=== PATIENT | female | born 1995 | race Caucasian/White ===

== ENCOUNTER 2017-01-08 11:03 | Emergency (ER) | payer OTHER ==
[~2017-01-08] VITALS: Ht 170.2 cm; Wt 73.0 kg
[~2017-01-08 11:03] MED LIST: BACT800T5 PO
[2017-01-08 11:06] VITALS: BP 122/75; PULSE 82; RESP 18; TEMP 98.3; O2SAT 98
[2017-01-08] MEDS ORDERED: SODIUM CHLOR 0.9% 1000 ML INJ 1,000 ML IV SCH (11:24)
[2017-01-08] MEDS ORDERED: ONDANSETRON HCL 4 MG/2 ML VIAL IVP ONE (11:30)
[2017-01-08] MEDS ORDERED: SODIUM CHLORIDE 0.9% FLUSH 10 ML FLUSH IV FLUSH PRN (11:30)
[2017-01-08 12:01] LABS: AUTOMATED NEUTROPHIL # 4.5 TH/MM3 (1.8-7.7); BASOPHIL % 0.2 % (0.0-2.0); BLOOD, URINE MOD (NEG); COMMENT (UR) CULT NOT INDICATED; CULTURE IF INDICATED CULT NOT INDICATED; EOSINOPHIL # 0.1 TH/MM3 (0-0.4); EOSINOPHIL % 1.8 % (0.0-4.0); GLUCOSE,URINE NEG (NEG); HEMATOCRIT 40.8 % (35.0-46.0); HEMO FLAGS DIFF FINAL; KETONE, URINE NEG (NEG); LYMPH % 24.1 % (9.0-44.0); LYMPHOCYTE # 1.6 TH/MM3 (1.0-4.8); MEAN CELL VOLUME 86.6 FL (80.0-100.0); MEAN CORPUSCULAR HEMOGLOBIN 29.1 PG (27.0-34.0); MEAN CORPUSCULAR HGB CONC 33.5 % (32.0-36.0); MONO % 5.5 % (0.0-8.0); MUCUS URINE MANY /lpf (OCC); NEUT % 68.4 % (16.0-70.0); NITRITE,URINE NEG (NEG); PLATELET COUNT 246 TH/MM3 (150-450); RED BLOOD COUNT 4.71 MIL/MM3 (4.00-5.30); RED CELL DISTRIBUTION WIDTH 12.6 % (11.6-17.2); SQUAMOUS EPITHELIAL CELL URINE 4 /hpf (0-5); URINE COLOR YELLOW (YELLW/STRAW); WHITE BLOOD COUNT 6.6 TH/MM3 (4.0-11.0)
--- NOTE | 2017-01-08 12:24 | PD ---
HPI Chief Complaint: Abdominal Pain Time Seen by Provider: 11:14 Travel History International Travel<30 days: No Contact w/Intl Traveler<30days: No Traveled to known affect area: No History of Present Illness HPI Is a 21 year-old woman who presents to the emergency department complaining of intermittent headaches that she would nausea and vomiting. She describes that for the past couple months she's had intermittent headaches, they come on over about 15 minutes or so, are usually bandlike initially worse on one side that progressed to involve multiple episodes of nausea and vomiting the last for about a day. They're usually resolved with sleep. Over the past month or so they've gotten more frequent and she is having now once every 1-2 weeks. She had an episode yesterday, went to an urgent care today who referred her to the emergency department. She has a history of IBS that usually manifest as some constipation and bloating, she doesn't typically have trouble with vomiting. She has no history of headaches or migraines prior to this. History Past Medical History Narrative Medical IBS, with constipation and bloating LMP: 01/07/17 Social History Alcohol Use: Yes (SOC) Tobacco Use: No Allergies-Medications (Allergen,Severity, Reaction): Coded Allergies: No Known Allergies (Unverified , 01/08/17) Reported Meds & Prescriptions Reported Meds & Active Scripts Active Review of Systems Except as stated in HPI: all other systems reviewed are Neg Physical Exam Narrative GENERAL: Well-appearing 21 year-old woman, no acute distress. SKIN: Focused skin assessment warm/dry. HEAD: Atraumatic. Normocephalic. NECK: Trachea midline. No JVD. CARDIOVASCULAR: Regular rate and rhythm. No murmur appreciated. RESPIRATORY: No accessory muscle use. Clear to auscultation. Breath sounds equal bilaterally. GASTROINTESTINAL: Abdomen soft, non-tender, nondistended. Hepatic and splenic margins not palpable. MUSCULOSKELETAL: No obvious deformities. No clubbing. No cyanosis. No edema. NEUROLOGICAL: Awake and alert. No obvious cranial nerve deficits. Motor grossly within normal limits. Normal speech. PSYCHIATRIC: Appropriate mood and affect; insight and judgment normal. Data Data Last Documented VS Vital Signs Date Time Temp Pulse Resp B/P Pulse Ox O2 Delivery O2 Flow Rate FiO2 01/08/17 11:06 98.3 82 18 122/75 98 Room Air Orders Complete Blood Count With Diff (01/08/17 11:24) Comprehensive Metabolic Panel (01/08/17 11:24) Lipase (01/08/17 11:24) Urinalysis - C+S If Indicated (01/08/17 11:24) Iv Access Insert/Monitor (01/08/17 11:24) Ondansetron Inj (Zofran Inj) (01/08/17 11:30) Sodium Chlor 0.9% 1000 Ml Inj (Ns 1000 M (01/08/17 11:24) Sodium Chloride 0.9% Flush (Ns Flush) (01/08/17 11:30) Ed Urine Pregnancytest Poc (01/08/17 11:24) Ct Brain W/O Iv Contrast(Rout) (01/08/17 ) Ketorolac Inj (Toradol Inj) (01/08/17 13:15) Diphenhydramine Inj (Benadryl Inj) (01/08/17 13:15) Prochlorperazine Inj (Compazine Inj) (01/08/17 13:15) Labs Laboratory Tests Test 01/08/17 11:40 White Blood Count 6.6 TH/MM3 Red Blood Count 4.71 MIL/MM3 Hemoglobin 13.7 GM/DL Hematocrit 40.8 % Mean Corpuscular Volume 86.6 FL Mean Corpuscular Hemoglobin 29.1 PG Mean Corpuscular Hemoglobin 33.5 % Concent Red Cell Distribution Width 12.6 % Platelet Count 246 TH/MM3 Mean Platelet Volume 8.6 FL Neutrophils (%) (Auto) 68.4 % Lymphocytes (%) (Auto) 24.1 % Monocytes (%) (Auto) 5.5 % Eosinophils (%) (Auto) 1.8 % Basophils (%) (Auto) 0.2 % Neutrophils # (Auto) 4.5 TH/MM3 Lymphocytes # (Auto) 1.6 TH/MM3 Monocytes # (Auto) 0.4 TH/MM3 Eosinophils # (Auto) 0.1 TH/MM3 Basophils # (Auto) 0.0 TH/MM3 CBC Comment DIFF FINAL Differential Comment Urine Color YELLOW Urine Turbidity HAZY Urine pH 6.0 Urine Specific [place] 1.029 Urine Protein TRACE mg/dL Urine Glucose (UA) NEG mg/dL Urine Ketones NEG mg/dL Urine Occult Blood MOD Urine Nitrite NEG Urine Bilirubin NEG Urine Urobilinogen LESS THAN 2.0 MG/DL Urine Leukocyte Esterase TRACE Urine RBC 4 /hpf Urine WBC 2 /hpf Urine Squamous Epithelial 4 /hpf Cells Urine Mucus MANY /lpf Microscopic Urinalysis Comment CULT NOT INDICATED Sodium Level 136 MEQ/L Potassium Level 3.8 MEQ/L Chloride Level 103 MEQ/L Carbon Dioxide Level 25.5 MEQ/L Anion Gap 8 MEQ/L Blood Urea Nitrogen 13 MG/DL Creatinine 0.77 MG/DL Estimat Glomerular Filtration 94 ML/MIN Rate Random Glucose 91 MG/DL Calcium Level 9.4 MG/DL Total Bilirubin 0.4 MG/DL Aspartate Amino Transf 53 U/L (AST/SGOT) Alanine Aminotransferase 106 U/L (ALT/SGPT) Alkaline Phosphatase 102 U/L Total Protein 7.4 GM/DL Albumin 3.8 GM/DL Lipase 88 U/L [facility] Medical Decision Making Medical Screen Exam Complete: Yes Emergency Medical Condition: Yes Interpretation(s) CT negative Labs unremarkable Differential Diagnosis Migraine, abdominal migraines, mass, pseudotumor, other Narrative Course Medical decision-making 21 year-old woman presents to the emergency department intermittent headaches, associated nausea and vomiting, ongoing for the past several months. She describes it in between episodes she's perfectly normal. This seems consistent with recurrent migraine/abdominal migraines. I don't think she has pseudotumor , or mass. We'll check CT head, recommend outpatient follow-up with neurology. Diagnosis Primary Impression: Headache Additional Impression: Abdominal migraine Patient Instructions: General Instructions Additional Instructions: Take Topamax as prescribed. Takes Zofran as needed for nausea or vomiting. Return to the emergency department for any new or worsening symptoms. Med/Other Pt SpecificInfo: Prescription(s) given Scripts Ondansetron Odt (Zofran Odt)4 Mg Tab4 Mg SL Q8HR PRN (Nausea/Vomiting) #15 TAB May substitute non-ODT form. Prov:Bryson Luis MD 01/08/17 Topiramate (Topamax)25 Mg Tab25 Mg PO BID #120 TAB Take 25 mg at night for one week, then take 25 mg at night twice a day for one week, then take 25 mg in the morning and 50 mg at night for one week, then continue to take 50 mg twice a day. Prov:Bryson Luis MD 01/08/17 Disposition: 01 DISCHARGE HOME Condition: Stable Bryson Luis MD Jan 08, 2017 12:24
[2017-01-08 12:29] LABS: ANION GAP 8 MEQ/L (5-15); AST (GOT) 53 U/L (15-37); BICARBONATE 25.5 MEQ/L (21.0-32.0); BLOOD UREA NITROGEN 13 MG/DL (7-18); CHLORIDE 103 MEQ/L (98-107); GLOMERULAR FILTRATION RATE 94 ML/MIN (>89); POTASSIUM 3.8 MEQ/L (3.5-5.1); SODIUM (NA) 136 MEQ/L (136-145)
[2017-01-08 12:31] LABS: ALT (GPT) 106 U/L (10-53)
[2017-01-08 12:32] LABS: ALKALINE PHOSPHATASE 102 U/L (45-117); TOTAL BILIRUBIN ADULT 0.4 MG/DL (0.2-1.0)
--- NOTE | 2017-01-08 12:49 | RADRPT ---
EXAM DATE/TIME: 01/08/2017 12:40 [facility] COMPARISON: No previous studies available for comparison. INDICATIONS : Cephalgia starting today. RADIATION DOSE: 33.26 CTDIvol (mGy) MEDICAL HISTORY : None SURGICAL HISTORY : None. ENCOUNTER: Initial ACUITY: 1 day PAIN SCALE: 0/10 LOCATION: cranial in the future if there is a medical necessity for iodinated contrast. TECHNIQUE: Multiple contiguous axial images were obtained of the head. Using automated exposure control and adj ustment of the mA and/or kV according to patient size, radiation dose was kept as low as reasonably a chievable to obtain optimal diagnostic quality images. DICOM format image data is available electro nically for review and comparison. FINDINGS: CEREBRUM: The ventricles are normal for age. No evidence of midline shift, mass lesion, hemorrhage or acute in farction. No extra-axial fluid collections are seen. POSTERIOR FOSSA: The cerebellum and brainstem are intact. The 4th ventricle is midline. The cerebellopontine angle i s unremarkable. EXTRACRANIAL: The visualized portion of the orbits is intact. SKULL: The calvaria is intact. No evidence of skull fracture. CONCLUSION: No acute disease. Mahin Funes MD on January 08, 2017 at 12:46 Board Certified Radiologist. This report was verified electronically.
[2017-01-08] MEDS ORDERED: diphenhydrAMINE HCL 50 MG/ML VIAL IVP ONE (13:15)
[2017-01-08] MEDS ORDERED: KETOROLAC TROMETHAMINE 30 MG/ML (IVP) VIAL IVP ONE (13:15)
[2017-01-08] MEDS ORDERED: PROCHLORPERAZINE INJ 10 MG/2 ML VIAL IVP ONE (13:15)
[2017-01-08] MEDS ORDERED: ZOFR4TAB3 SL (13:40)
[2017-01-08] MEDS ORDERED: TOPA25TA8 PO (13:40)
== END 2017-01-08 14:21 | disposition home or self-care (01) ==
LOC: NEPD 11:03
DX: R51 Headache (principal); G43.D0 Abdominal migraine, not intractable; R11.2 Nausea with vomiting, unspecified; K58.9 Irritable bowel syndrome, unspecified
CPT/HCPCS: 70450; 80053; 81001; 83690; 84703; 85025; 96361; 96374; 96375; 99285; J0780; J1200; J1885; J2405; J7030